=== PATIENT | female | born 1990 | race Caucasian/White ===

== ENCOUNTER 2020-02-06 21:21 | Emergency (ER) | payer OTHER ==
[2020-02-06 22:20] LABS: Absolute Lymphocytes (CBC) 3.3 K/uL (0.7-4.9); Hematocrit 38.6 % (36.0-45.0); Lymphocytes % 29.8 % (15.3-44.8); RBC Red Blood Cell Count 4.58 M/uL (3.86-4.86)
[2020-02-06 23:10] LABS: Urine Blood 3+ (NEG); Urine Glucose NEGATIVE (NEG); Urine Protein 1+ (NEG); Urine pH 8.5 (5.0-7.0)
[2020-02-06 23:44] LABS: Potassium 3.2 mmol/L (3.5-5.1)
--- NOTE | 2020-02-06 23:50 | EDPHYS ---
Physician Documentation [facility] Name: Allison Boswell Age: 29 yrs Sex: Female : 1990 Arrival Date: 02/06/2020 Time: 21:23 Bed 19 Private MD: ED Physician Mitchell Nelson HPI: 02/05 22:04 This 29 yrs old Female presents to ER via Ambulatory with complaints of jmm Vaginal Bleeding, + Preg <12wks. 22:04 The patient presents to the emergency department with vaginal bleeding, that is light. jmm The estimated gestational age is 5 weeks. course: care: private OB physician. This is a 29 year old female approx 5 to 7 weeks that presents to the ED with complaints of vaginal bleeding beginning approx 3 days ago with spotting and has now increased today. Advised by ob to go to ED for further evaluation. . 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 - Social history:: Smoking status: Patient denies any tobacco usage or history of. ROS: 22:04 Constitutional: Negative for fever, chills, and weight loss, Cardiovascular: Negative jmm for chest pain, palpitations, and edema, Respiratory: Negative for shortness of breath, cough, wheezing, and pleuritic chest pain, Abdomen/GI: Negative for abdominal pain, nausea, vomiting, diarrhea, and constipation. 22:04 : Positive for vaginal bleeding. 22:04 All other systems are negative. Exam: 22:04 Constitutional: This is a well developed, well nourished patient who is awake, alert, jmm and in no acute distress. Head/Face: atraumatic. Eyes: EOMI, no conjunctival erythema appreciated ENT: Moist Mucus Membranes Neck: Trachea midline, Supple Chest/axilla: Normal chest wall appearance and motion. Cardiovascular: Regular rate and rhythm. No edema appreciated Respiratory: Normal respirations, no respiratory distress appreciated Abdomen/GI: Non distended, soft Back: Normal ROM Skin: General appearance color normal MS/ Extremity: Moves all extremities, no obvious deformities appreciated, no edema noted to the lower extremities Neuro: Awake and alert, normal gait Psych: Behavior is normal, Mood is normal, Patient is cooperative and pleasant Vital Signs: 21:49 BP 131 / 82; Pulse 58; Resp 18; Temp 98.2; Pulse Ox 100% on R/A; Weight 92.99 kg; dm5 Height 5 ft. 3 in. (160.02 cm); Pain 0/10; 22:50 BP 132 / 70 LA (auto/reg); Pulse 59 MON; Resp 16 S; Temp 97.8; Pulse Ox 100% on R/A; sg 02/06 00:00 BP 130 / 77; Pulse 60; Resp 18; Temp 97.8; Pulse Ox 100% on R/A; sg 02/05 21:49 Body Mass Index 36.31 (92.99 kg, 160.02 cm) dm5 MDM: 02/05 22:02 Patient medically screened. [facility] 23:48 Data reviewed: vital signs, nurses notes. Counseling: I had a detailed discussion with tesha the patient and/or guardian regarding: the historical points, exam findings, and any diagnostic results supporting the discharge/admit diagnosis, lab results, the need for outpatient follow up, to return to the emergency department if symptoms worsen or persist or if there are any questions or concerns that arise at home. ED course: Patient is alert and non toxic in appearance in the ED. IUP. Patient prescribed abx, advised to follow upw with ob for repeat quant hcg. Patient advised to follow up with pcp and otherwise given strict return precautions. Patient understood and agrees with the plan of care. . 02/05 21:54 Order name: Quantitative Hcg; Complete Time: 23:48 [facility] 02/05 21:54 Order name: Abo/rh Typing; Complete Time: 23:51 [facility] 02/05 21:54 Order name: Basic Metabolic Panel; Complete Time: 23:48 [facility] 02/05 21:54 Order name: CBC with Diff; Complete Time: 22:27 [facility] 02/05 22:43 Order name: Urine Dipstick--Ancillary (enter results) tt3 02/05 22:43 Order name: Urine --Ancillary (enter results); Complete Time: 23:16 tt3 02/05 21:54 Order name: IV Saline Lock; Complete Time: 22:01 [facility] 02/05 21:54 Order name: Labs collected and sent; Complete Time: 22:01 [facility] 02/05 21:54 Order name: NPO; Complete Time: 22:01 [facility] 02/05 21:54 Order name: Urine Dipstick-Ancillary (obtain specimen); Complete Time: 22:43 [facility] 02/05 22:45 Order name: Urine Microscopic Only 02/05 22:45 Order name: Urine Culture sg Administered Medications: No medications were administered Disposition: 02/06 21:48 Co-signature as Attending Physician, Mitchell Nelson MD I agree with the assessment and tw4 plan of care. Disposition: 02/06/20 23:50 Discharged to Home. Impression: Threatened , Urinary tract infection, site not specified. - Condition is Fair. - Discharge Instructions: Threatened Miscarriage, Vaginal Bleeding During , First Trimester, and Urinary Tract Infection. - Prescriptions for Macrobid 100 mg Oral Capsule - take 1 capsule by ORAL route every 12 hours for 7 days; 14 capsule. - Medication Reconciliation Form, Thank You Letter, Antibiotic Education, Prescription Opioid Use form. - Follow up: Private Physician; When: 2 - 3 days; Reason: Recheck today's complaints, Continuance of care, Repeat Beta-HCG (48 Hours), Re-evaluation by your physician. Signatures: Dispatcher [employer] Verónica Bailey RN RN dm5 Clement Aggarwal RN RN sg Coy Card PA PA jmm Wadley, Terrence, MD MD tw4 Corrections: (The following items were deleted from the chart) 00:06 02/05 23:50 02/06/2020 23:50 Discharged to Home. Impression: Threatened ; dm5 Urinary tract infection, site not specified. Condition is Fair. Forms are Medication Reconciliation Form, Thank You Letter, Antibiotic Education, Prescription Opioid Use. Follow up: Private Physician; When: 2 - 3 days; Reason: Recheck today's complaints, Continuance of care, Repeat Beta-HCG (48 Hours), Re-evaluation by your physician. tesha
--- NOTE | 2020-02-06 23:50 | ER ---
Nurse's Notes [facility] Name: Allison Boswell Age: 29 yrs Sex: Female : 1990 Arrival Date: 02/06/2020 Time: 21:23 Bed 19 Private MD: Diagnosis: Threatened ;Urinary tract infection, site not specified Presentation: 02/05 21:49 Chief complaint: Patient states: spotting after sex 3 days ago that continued lightly dm5 bleeding and it got heavier today. Coronavirus screen: Client denies travel out of the [place] in the last 14 days. At this time, the client does not indicate any symptoms associated with coronavirus-19. Ebola Screen: Patient negative for fever greater than or equal to 101.5 degrees Fahrenheit, and additional compatible Ebola Virus Disease symptoms Patient denies exposure to infectious person. Patient denies travel to an Ebola-affected area in the 21 days before illness onset. No symptoms or risks identified at this time. Initial Sepsis Screen: Does the patient meet any 2 criteria? No. Patient's initial sepsis screen is negative. Does the patient have a suspected source of infection? No. Patient's initial sepsis screen is negative. Risk Assessment: Do you want to hurt yourself or someone else? Patient reports no desire to harm self or others. Onset of symptoms was February 06, 2020. 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 - Social history:: Smoking status: Patient denies any tobacco usage or history of. Screenin:00 Abuse screen: Denies threats or abuse. Denies injuries from another. Nutritional sg screening: No deficits noted. Tuberculosis screening: No symptoms or risk factors identified. Never had TB. Fall Risk None identified. Assessment: 22:00 Obstetrical Assessment: General assessment: awake and alert. General: Appears in no sg apparent distress. well groomed, well developed, well nourished, Behavior is calm, cooperative, appropriate for age. Pain: Denies pain. Neuro: Level of Consciousness is awake, alert, obeys commands, Oriented to person, place, situation, Facial symmetry appears normal. Cardiovascular: Patient's skin is warm and dry. Chest pain is denied. Respiratory: Airway is patent Respiratory effort is even, unlabored, Respiratory pattern is regular, symmetrical. GI: No signs and/or symptoms were reported involving the gastrointestinal system. : Urine is cloudy, Reports vaginal bleeding that is bright red, heavy flow. EENT: No signs and/or symptoms were reported regarding the EENT system. Derm: Skin is pink, warm \\T\\ dry. Musculoskeletal: Circulation, motion, and sensation intact. Range of motion: intact in all extremities. 22:16 Reassessment: Patient appears in no apparent distress at this time. Patient and/or sg family updated on plan of care and expected duration. Pain level reassessed. Patient is alert, oriented x 3, equal unlabored respirations, skin warm/dry/pink. 23:09 Reassessment: Patient appears in no apparent distress at this time. pt spouse at nurses sg station, states" We have been here for almost two hours, any word on where this ultrasound person is." updated unsure of where the US tech is, estimated ETA 30 more mins, pt spouse rolled his eyes and walked back to exam room. 23:11 Reassessment: pharmacy picking tech at bedside at this time. sg Vital Signs: 21:49 BP 131 / 82; Pulse 58; Resp 18; Temp 98.2; Pulse Ox 100% on R/A; Weight 92.99 kg; dm5 Height 5 ft. 3 in. (160.02 cm); Pain 0/10; 22:50 BP 132 / 70 LA (auto/reg); Pulse 59 MON; Resp 16 S; Temp 97.8; Pulse Ox 100% on R/A; sg 02/06 00:00 BP 130 / 77; Pulse 60; Resp 18; Temp 97.8; Pulse Ox 100% on R/A; sg 02/05 21:49 Body Mass Index 36.31 (92.99 kg, 160.02 cm) dm5 ED Course: 02/05 00:30 IV discontinued, intact, bleeding controlled, No redness/swelling at site. Pressure sg dressing applied. 21:23 Patient arrived in ED. am2 21:51 Triage completed. dm5 21:51 Arm band placed on right wrist. [facility] 21:54 Coy Card PA is PHCP. [facility] 21:54 Mitchell Nelson MD is Attending Physician. [facility] 22:00 Patient has correct armband on for positive identification. Bed in low position. Call sg light in reach. Pulse ox on. NIBP on. Warm blanket given. Head of bed elevated. 22:00 No provider procedures requiring assistance completed. sg 22:16 Clement Aggarwal, RN is Primary Nurse. 22:16 Initial lab(s) drawn, by ak, sent to lab. Inserted saline lock: 22 gauge in right sg antecubital area, using aseptic technique. Blood collected. 02/06 00:30 No provider procedures requiring assistance completed. sg Administered Medications: No medications were administered Outcome: 02/05 23:50 Discharge ordered by . [facility] 02/06 00:00 Discharged to home ambulatory, with family. sg Condition: good Discharge instructions given to patient, family, Instructed on discharge instructions, follow up and referral plans. safety practices, Demonstrated understanding of instructions, follow-up care. 00:06 Patient left the ED. 5 Signatures: Verónica Escobar, RN RN [facility] Clement Aggarwal, RN THADDEUS Coy Card PA PA jmm Moreno, Amanda am2
[2020-02-07 00:02] LABS: Urine Bacteria LOADED /HPF (<20); Urine Mucus 1+ /HPF (NONE SEEN); Urine RBC >50 /HPF (NONE SEEN)
--- NOTE | 2020-02-10 09:06 | RAD REPORT ---
EXAM DESCRIPTION: US - TRANSVAG OB - 02/07/2020 6:48 am CLINICAL HISTORY: 29 years Female, VAGINAL BLEEDING COMPARISON: None. TECHNIQUE: Complete first trimester iterative ultrasound obtained with transvaginal imaging. FINDINGS: Uterus: The uterus measures 7.7 x 3.8 x 4.4 cm. No myometrial abnormalities. Gestational sac: The gestational sac diameter of 1.3 cm. pole: pole identified with crown-rump length of 0.57 cm heart motion: Not identified. Yolk sac: Not identified. Placenta: Not well evaluated due to early gestational age Right ovary: Not identified. Left ovary: The left ovary measures 1.9 x 0.9 x 0.9 cm. Adnexa: No large adnexal masses Free fluid: No free pelvic fluid. Duplex imaging: Color and spectral Doppler imaging demonstrates blood flow in the left ovary. IMPRESSION: 1. Single intrauterine identified with a crown-rump length of 0.57 cm compatib le with an estimated gestational age of 6 weeks, 3 days. No cardiac activity identified. Findin gs concerning for demise however lack of cardiac activity may be related to relatively early ge stational age. Early normal is not excluded on this first ultrasound. Close continued clini chris, laboratory, and sonographic follow-up recommended. Electronically signed by: Naga Maldonado 02/07/2020 12:53 AM FINANCIAL ACCOUNTING ANALYST Due to temporary technical issues with the PACS/Fluency reporting system, reports are being signed by the in house radiologist without review as a courtesy to ensure prompt reporting. The interpreting r adiologist is fully responsible for the content of the report.
[2020-02-11 11:29] VITALS: BP 131/82; TEMP 98.2; O2SAT 100
== END 2020-02-07 00:06 | disposition home or self-care (01) ==
LOC: ER 21:21
DX: O20.0 Threatened abortion (principal); O23.41 Unspecified infection of urinary tract in pregnancy, first trimester; Z3A.01 Less than 8 weeks gestation of pregnancy; Z88.0 Allergy status to penicillin; Z88.2 Allergy status to sulfonamides
CPT/HCPCS: 36415; 76813; 80048; 81003; 81015; 81025; 84702; 85025; 86900; 86901; 87077; 87086; 87088; 87186; 99284

== ENCOUNTER 2021-04-30 13:55 | Emergency (ER) | payer OTHER ==
--- OUTSIDE RECORDS SUMMARY | 2021-04-30 13:59 | XMS REPORT | Continuity of Care Document ---
:1990 Author Organization [facility] t Address [address] [place] [address] Care Team Providers Name Role Phone Pcp, Does Not Have A Primary Care Physician Nalini Miranda Attending Clinician Unavailable Doctor Unassigned, Name Attending Clinician Unavailable Nalini Pereira MD Attending Clinician Nalini PEREIRA Attending Clinician Unavailable 2, Lab Attending Clinician Unavailable Leonard Hollins MD Attending Clinician Kenan Kimbrough DO Attending Clinician Pob, Lab Main Attending Clinician Unavailable Nalini Miranda Admitting Clinician Unavailable Payers Payer Name Policy Type Policy Number Effective Date Expiration Date S ource Problems Condition Condition Condition Status Onset Resolution Last Treating Co mments Source Name Details Category Date Date Treatment Clinician Date History of History of Disease Active U nivers multiple multiple 5-28 ity of [place] Obesity Obesity Disease Active 2019-02 Univers (BMI (BMI 2-02 ity of 30-39.9) 30-39.9) 00:00: [place] [address] Medical Branch Less than Less than Disease Active 2019-02 Uni vers 8 weeks 8 weeks 2-02 ity of [place] ch Allergies, Adverse Reactions, Alerts Allergy Allergy Status Severity Reaction(s) Onset Inactive Treating Comm ents Source Name Type Date Date Clinician PENICILL DRUG Active High Anaphylaxis 2019-02 Uni vers IN INGREDI 02 ity of 00:00: [place] 00 Medical Branch SULFA Drug Active Hives 2019-02 Univers (SULFONA Class 02 ity of MIDE 00:00: [place] ANTIBIOT 00 Medical ICS) Branch Penicill Propensi Active Anaphylaxis 2019-02 U nivers in ty to 03-30 ity of adverse 00:00: [place] reaction 00 Medical s Branch Sulfa Propensi Active Itching 2019-02 Univers (Sulfona ty to 03-30 ity of mide adverse 00:00: [place] Antibiot reaction 00 Medica l ics) s Branch NO KNOWN Drug Active Univers ALLERGIE Class ity of S [place] [facility] Social History Social Habit Start Date Stop Date Quantity Comments Source ASSERTION 2019-12-29 University of 00:00:00 [place] [facility] History [facility] University o f Alcohol Comment [place] [facility] Exposure to Not sure [facility] SARS-CoV-2 [place] [facility] (event) Branch Alcohol intake 2020-08-31 2020-08-31 Lifetime University of 00:00:00 00:00:00 non-drinker [place] [facility] (finding) Branch Tobacco use and 2020-01-28 2020-01-28 Never used Universit y of exposure 00:00:00 00:00:00 [place] [facility] History SDOH 2020-01-28 2020-01-28 1 University o f Alcohol Frequency 00:00:00 00:00:00 [place] [facility] History SDVT 2020-01-28 2020-01-28 99 University o f Alcohol Std 00:00:00 00:00:00 [place] [facility] Drinks Branch History [facility] 2020-01-28 2020-01-28 1 University o f Alcohol Binge 00:00:00 00:00:00 [place] [facility] Sex [birth year] At [birth year] Universit y of 00:00:00 00:00:00 [place] [facility] Smoking Status Start Date Stop Date Source Never smoker [facility] Medical Branch Medications Ordered Filled Start Stop Current Ordering Indication Dosage Frequency Signature Comments Components Source Medication Medication Date Date Medication? Clinician (SIG) Name Name Yes Take by OncoHoldingse rs vit 5-28 mouth. ity of calc,iron,f 20:07: [place] olic 12 Medical ( Branch VITAMIN ORAL) Yes Take by Unive rs vit 5-28 mouth. ity of calc,iron,f 20:07: [address] ( Branch VITAMIN ORAL) Yes Take by Unive rs vit 5-28 mouth. ity of calc,iron,f 20:07: [address] ( Branch VITAMIN ORAL) Yes Take by Unive rs vit 5-28 mouth. ity of calc,iron,f 20:07: [address] ( Branch VITAMIN ORAL) Yes Take by Unive rs vit 5-28 mouth. ity of calc,iron,f 20:07: [address] ( Branch VITAMIN ORAL) Yes Take by Unive rs vit 5-28 mouth. ity of calc,iron,f 20:07: [address] ( Branch VITAMIN ORAL) Yes Take by Unive rs vit 5-28 mouth. ity of calc,iron,f 20:07: [address] ( Branch VITAMIN ORAL) Yes Take by Unive rs vit 5-28 mouth. ity of calc,iron,f 20:07: [address] ( Branch VITAMIN ORAL) Yes Take by Unive rs vit 5-28 mouth. ity of calc,iron,f 20:07: [address] ( Branch VITAMIN ORAL) Yes Take by Unive rs vit 5-28 mouth. ity of calc,iron,f 20:07: [address] ( Branch VITAMIN ORAL) Yes Take by Unive rs vit 5-28 mouth. ity of calc,iron,f 15:07: [address] ( Branch VITAMIN ORAL) Yes Take by Unive rs vit 5-28 mouth. ity of calc,iron,f 15:07: [place] [address] Medical ( Branch VITAMIN ORAL) Yes Take by Unive rs vit 5-28 mouth. ity of calc,iron,f 15:07: [address] ( Branch VITAMIN ORAL) 2020 Yes Take by Unive rs vit 2-15 mouth. ity of calc,iron,f 22:05: [place] olic 15 Medical ( Branch VITAMIN ORAL) 2020- Yes Take by Unive rs vit 2-15 mouth. ity of calc,iron,f 22:05: [place] [address] Medical ( Branch VITAMIN ORAL) 2020- Yes Take by Unive rs vit 2-15 mouth. ity of calc,iron,f 22:05: [place] [address] Medical ( Branch VITAMIN ORAL) 2020- Yes Take by Unive rs vit 2-15 mouth. ity of calc,iron,f 22:05: [place] [address] Medical ( Branch VITAMIN ORAL) 2020- Yes Take by Unive rs vit 2-15 mouth. ity of calc,iron,f 22:05: [place] [address] Medical ( Branch VITAMIN ORAL) 2020- Yes Take by Unive rs vit 2-15 mouth. ity of calc,iron,f 22:05: [place] [address] Medical ( Branch VITAMIN ORAL) 2020- Yes Take by Unive rs vit 2-15 mouth. ity of calc,iron,f 22:05: [place] [address] Medical ( Branch VITAMIN ORAL) 2020- Yes Take by Unive rs vit 2-15 mouth. ity of calc,iron,f 22:05: [place] [address] Medical ( Branch VITAMIN ORAL) 2020- Yes Take by Unive rs vit 2-15 mouth. ity of calc,iron,f 22:05: [place] [address] Medical ( Branch VITAMIN ORAL) 2020- Yes Take by Unive rs vit 2-15 mouth. ity of calc,iron,f 22:05: [place] [address] Medical ( Branch VITAMIN ORAL) 2020- Yes Take by Unive rs vit 2-15 mouth. ity of calc,iron,f 22:05: [place] [address] Medical ( Branch VITAMIN ORAL) Nitrofurant 2020- Yes Univer s oin&Nit. 2-14 ity of Macrocryst 00:00: [place] 100 mg 00 Medical capsule Branch Nitrofurant 2020- Yes Univer s oin&Nit. 2-14 ity of Macrocryst 00:00: [place] 100 mg 00 Medical capsule Branch Nitrofurant 2019- Yes Univer s oin&Nit. 2-14 ity of Macrocryst 00:00: [place] 100 mg 00 Medical capsule Branch Nitrofurant 2020 Yes Univer s oin&Nit. 2-14 ity of Macrocryst 00:00: [place] 100 mg 00 Medical capsule Branch Nitrofurant 2020- Yes Univer s oin&Nit. 2-14 ity of Macrocryst 00:00: [place] 100 mg 00 Medical capsule Branch Nitrofurant 2019-02 Yes Univer s oin&Nit. 2-14 ity of Macrocryst 00:00: [place] 100 mg 00 Medical capsule Branch Nitrofurant 2019-02 Yes Univer s oin&Nit. 2-14 ity of Macrocryst 00:00: [place] 100 mg 00 Medical capsule Branch Nitrofurant 2019- 2020- No Unive rs oin&Nit. 2-14 12-30 ity of Macrocryst 00:00: 00:00 [place] 100 mg 00 :00 Medical capsule Branch Nitrofurant 2019- 2020- No Unive rs oin&Nit. 2-14 12-30 ity of Macrocryst 00:00: 00:00 [place] 100 mg 00 :00 Medical capsule Branch Nitrofurant 2019-02 2020- No Unive rs oin&Nit. 2-14 12-30 ity of Macrocryst 00:00: 00:00 [place] 100 mg 00 :00 Medical capsule Branch 2020 Yes Take by Unive rs vit 2-02 mouth. ity of calc,iron,f 16:13: [place] [address] Medical ( Branch VITAMIN ORAL) 2020 Yes Take by Unive rs vit 2-02 mouth. ity of calc,iron,f 16:13: [place] [address] Medical ( Branch VITAMIN ORAL) 2020- Yes Take by Unive rs vit 2-02 mouth. ity of calc,iron,f 16:13: [place] [address] Medical ( Branch VITAMIN ORAL) 2020- Yes Take by Unive rs vit 2-02 mouth. ity of calc,iron,f 16:13: [place] [address] Medical ( Branch VITAMIN ORAL) 2020- Yes Take by Unive rs vit 2-02 mouth. ity of calc,iron,f 16:13: [place] [address] Medical ( Branch VITAMIN ORAL) 2020- Yes Take by Unive rs vit 2-02 mouth. ity of calc,iron,f 16:13: [place] [address] Medical ( Branch VITAMIN ORAL) 2020- Yes Take by Unive rs vit 2-02 mouth. ity of calc,iron,f 16:13: [place] [address] Medical ( Branch VITAMIN ORAL) 2020- Yes Take by Unive rs vit 2-02 mouth. ity of calc,iron,f 16:13: [place] [address] Medical ( Branch VITAMIN ORAL) Immunizations Ordered Filled Immunization Date Status Comments [facility] Immunization Name Name Influenza Virus 2020-01-28 Completed Universit y of Vaccine Quad .5 mL 00:00:00 [place] [facility] IM 6+ MO Branch Influenza Virus 2020-01-28 Completed Universit y of Vaccine Quad .5 mL 00:00:00 [place] [facility] IM 6+ MO Branch Influenza Virus 2020-01-28 Completed Universit y of Vaccine [place] .5 mL 00:00:00 [place] [facility] IM 6+ MO Branch Influenza Virus 2020-01-28 Completed Universit y of Vaccine [place] .5 mL 00:00:00 [place] [facility] IM 6+ MO Branch Influenza Virus 2020-01-28 Completed Universit y of Vaccine [place] .5 mL 00:00:00 [place] [facility] IM 6+ MO Branch Influenza Virus 2020-01-28 Completed Universit y of Vaccine [place] .5 mL 00:00:00 [place] [facility] IM 6+ MO Branch Influenza Virus 2020-01-28 Completed Universit y of Vaccine [place] .5 mL 00:00:00 [place] [facility] IM 6+ MO Branch Influenza Virus 2020-01-28 Completed Universit y of Vaccine [place] .5 mL 00:00:00 [place] [facility] IM 6+ MO Branch Influenza Virus 2020-01-28 Completed Universit y of Vaccine [place] .5 mL 00:00:00 [place] [facility] IM 6+ MO Branch Influenza Virus 2020-01-28 Completed Universit y of Vaccine [place] .5 mL 00:00:00 [place] [facility] IM 6+ MO Branch Influenza Virus 2020-01-28 Completed Universit y of Vaccine [place] .5 mL 00:00:00 [place] Medical IM 6+ MO Branch Influenza Virus 2020-01-28 Completed Universit y of Vaccine [place] .5 mL 00:00:00 [place] [facility] IM 6+ MO Branch Influenza Virus 2020-01-28 Completed Universit y of Vaccine [place] .5 mL 00:00:00 [place] [facility] IM 6+ MO Branch Influenza Virus 2020-01-28 Completed Universit y of Vaccine [place] .5 mL 00:00:00 [place] [facility] IM 6+ MO Branch Influenza Virus 2020-01-28 Completed Universit y of Vaccine [place] .5 mL 00:00:00 [place] [facility] IM 6+ MO Branch Influenza Virus 2020-01-28 Completed Universit y of Vaccine [place] .5 mL 00:00:00 [place] [facility] IM 6+ MO Branch Influenza Virus 2020-01-28 Completed Universit y of Vaccine [place] .5 mL 00:00:00 [place] [facility] IM 6+ MO Branch Influenza Virus 2020-01-28 Completed Universit y of Vaccine Quad .5 mL 00:00:00 [place] [facility] IM 6+ MO Branch Influenza Virus 2020-01-28 Completed Universit y of Vaccine [place] .5 mL 00:00:00 [place] [facility] IM 6+ MO Branch Influenza Virus 2020-01-28 Completed Universit y of Vaccine Quad .5 mL 00:00:00 [place] [facility] IM 6+ MO Branch Influenza Virus 2020-01-28 Completed Universit y of Vaccine [place] .5 mL 00:00:00 [place] [facility] IM 6+ MO Branch Influenza Virus 2020-01-28 Completed Universit y of Vaccine [place] .5 mL 00:00:00 [place] [facility] IM 6+ MO Branch Influenza Virus 2020-01-28 Completed Universit y of Vaccine [place] .5 mL 00:00:00 [place] [facility] IM 6+ MO Branch Influenza Virus 2020-01-28 Completed Universit y of Vaccine [place] .5 mL 00:00:00 [place] [facility] IM 6+ MO Branch Influenza Virus 2020-01-28 Completed Universit y of Vaccine [place] .5 mL 00:00:00 [place] [facility] IM 6+ MO Branch Influenza Virus 2020-01-28 Completed Universit y of Vaccine [place] .5 mL 00:00:00 [place] [facility] IM 6+ MO Branch Influenza Virus 2020-01-28 Completed Universit y of Vaccine [place] .5 mL 00:00:00 [place] [facility] IM 6+ MO Branch Influenza Virus 2020-01-28 Completed Universit y of Vaccine [place] .5 mL 00:00:00 [place] [facility] IM 6+ MO Branch Influenza Virus 2020-01-28 Completed Universit y of Vaccine [place] .5 mL 00:00:00 [place] [facility] IM 6+ MO Branch Influenza Virus 2020-01-28 Completed Universit y of Vaccine [place] .5 mL 00:00:00 [place] [facility] IM 6+ MO Branch Influenza Virus 2020-01-28 Completed Universit y of Vaccine [place] .5 mL 00:00:00 [place] [facility] IM 6+ MO Branch Influenza Virus 2020-01-28 Completed Universit y of Vaccine Quad .5 mL 00:00:00 [facility] IM 6+ MO Branch Vital Signs Vital Name Observation Time Observation Value Comments Source Systolic blood 2020-07-23 20:05:00 122 mm[Hg] Univer sity of pressure [facility] Diastolic blood 2020-07-23 20:05:00 81 mm[Hg] Unive rsity of pressure [facility] Heart rate 2020-07-23 20:05:00 75 /min [facility] [place] [facility] [place] Body temperature 2020-07-23 20:05:00 36.78 Gabriela Univ ersity of [place] [facility] Respiratory rate 2020-07-23 20:05:00 18 /min Univ ersity of [place] [facility] Body height 2020-07-23 20:05:00 160 cm [facility] [place] [facility] [place] Body weight 2020-07-23 20:05:00 95.255 kg [facility] [place] [facility] [place] BMI 2020-07-23 20:05:00 37.20 kg/m2 [facility] [place] [facility] Systolic blood 2020-02-25 18:04:00 106 mm[Hg] Univer sity of pressure [place] [facility] Diastolic blood 2020-02-25 18:04:00 59 mm[Hg] Unive rsity of pressure [place] [facility] Heart rate 2020-02-25 18:04:00 58 /min [facility] [place] [facility] Body temperature 2020-02-25 18:04:00 36.83 Gabriela Univ [facility]ity [facility] [place] [facility] [place] Respiratory rate 2020-02-25 18:04:00 18 /min Univ ersity of [place] [facility] Body height 2020-02-25 18:04:00 160 cm [facility] [place] [facility] Body weight 2020-02-25 18:04:00 93.895 kg [facility] [place] [facility] BMI 2020-02-25 18:04:00 36.67 kg/m2 [facility] [place] [facility] Systolic blood 2020-02-10 22:04:00 126 mm[Hg] Univer sity of pressure [place] [facility] Diastolic blood 2020-02-10 22:04:00 84 mm[Hg] Unive rsity of pressure [place] [facility] Heart rate 2020-02-10 22:04:00 83 /min [facility] [place] [facility] Body temperature 2020-02-10 22:04:00 36.78 Gabriela Univ [facility] [place] [facility] Respiratory rate 2020-02-10 22:04:00 18 /min Univ ersity of [place] [facility] Body height 2020-02-10 22:04:00 160 cm [facility]i [facility] [place] [facility] Body weight 2020-02-10 22:04:00 92.987 kg [facility]i ty [facility] [place] [facility] BMI 2020-02-10 22:04:00 36.31 kg/m2 [facility] [place] [facility] Systolic blood 2020-01-28 16:10:00 116 mm[Hg] Univer sity of pressure [place] [facility] Diastolic blood 2020-01-28 16:10:00 71 mm[Hg] Unive rsity of pressure [place] [facility] Heart rate 2020-01-28 16:10:00 72 /min [facility]i [facility] [place] [facility] Body temperature 2020-01-28 16:10:00 36.78 Gabriela Univ ersity of [facility] Respiratory rate 2020-01-28 16:10:00 18 /min Univ ersity of [facility] Body height 2020-01-28 16:10:00 160 cm [facility] [place] [facility] Body weight 2020-01-28 16:10:00 93.441 kg [facility] [place] [facility] BMI 2020-01-28 16:10:00 36.49 kg/m2 [facility] [place] [facility] Procedures Procedure Date / Time Performing Clinician Source Performed AUTHORIZATION TO RELEASE 2021-01-07 06:01:00 Doctor Unassigned, No [facility] TO [facility] Medical Branch US PELVIS COMPLETE WITH 2020-09-03 19:50:[address] [facility] TRANSVAGINAL [facility] ULTR[facility] 2020-07-23 05:01:00 Doctor Unassigned, No [facility] Branch POCT TEST 2020-07-23 00:00:00 AdAltagracia davies [facility] EXTERNAL PROVIDER 2020-02-05 06:01:00 Doctor Unassigned, No [facility] Medical Branch FLU VACC ([id number]), 6+ 2020-01-28 16:33:54 AdumAltagracia [facility] MONTHS, IM, QUAD Medical Branch POCT TEST 2020-01-28 00:00:00 AdAltagracia davies [facility] POCT URINALYSIS W/O 2020-01-28 00:00:[address] [facility] SPECIFIC GRAVITY [facility] Er Encounters Start End Encounter Admission Attending Care Care Encounter Source Date/Time Date/Time Type Type Clinicians Facility Department ID 2021-05-05 Inpatient KRISHNA Miranda [facility] [id number] [facility] 09:00:00 Corin [id number] [facility] [place] 2021-04-28 Outpatient Ruben [facility] [id number] [facility] 13:49:24 Corin 23 [facility] [place] 2021-05-02 2021-05-02 Inpatient KRISHNA Miranda [facility] [id number] [facility] 13:00:00 13:00:00 Corin [id number] [facility] [place] 2021-04-28 2021-04-28 Outpatient CHRIS Miranda [facility] [id number] [facility] 07:50:00 07:50:00 Corin [id number] [facility] [place] 2021-01-07 2021-01-07 Orders Doctor JULIO [id number] Univers 00:00:00 00:00:00 Only Unassigned, IBRAHIMA [id number] ity of [place] [facility] [id number] Jey as [phone] [address] 2021-01-06 2021-01-06 Telephone Adum, [facility] [id number] [facility] 00:00:00 00:00:00 Altagracia MONTEIRO [id number] ity of [id number] [phone] Oh dical NAL 134 [facility] 2021-01-05 2021-01-05 Telephone Ad, [facility] [id number] [facility] 00:00:00 00:00:00 Altagracia MONTEIRO [id number] ity [facility] [id number] [phone] Oh dical NAL 134 [facility] 2020-09-03 2020-09-03 [facility] [id number] Univers 14:00:00 23:59:00 Encounter Altagracia Monteiro [id number] ity [id number] [phone] [address] [place] 2020-09-03 2020-09-03 Outpatient R AD, [facility] [id number] Univers 00:00:00 00:00:00 ALTAGRACIA ity [facility] 2020-09-03 2020-09-03 Outpatient R [facility] [id number] Univers 00:00:00 00:00:00 [facility]IA [id number] [facility] 2020-08-30 2020-08-30 Online Marketing Coordinator 2, Adc Lab [facility] [id number] Univers 08:33:39 08:48:39 Visit Lana Hollins [id number] ity of [place] [id number] [facility] [phone] Oh dical [facility] 353 [facility] 2020-08-30 2020-08-30 Outpatient R [facility] [id number] Univers 08:15:00 08:15:00 [id number] [facility] 2020-08-30 2020-08-30 Outpatient R [facility] [id number] Univers 08:15:00 08:15:00 ity [facility] 2020-08-27 2020-08-27 Case [facility] [id number] Univers 00:00:00 00:00:00 Management Altagracia Monteiro [id number] it[id number] [phone] Me dical nal 134 [facility] 2020-08-23 2020-08-23 Outpatient R [facility] [id number] Univers 09:45:00 09:45:00 [id number] ity [facility] 2020-08-23 2020-08-23 [facility] [id number] Univers 09:45:00 09:45:00 ALTAGRACIA ity of [facility] 2020-08-23 2020-08-23 Online Marketing Coordinator 2, Adc Lab [facility] [id number] Univers 08:30:33 08:45:33 Visit Adum, Altagracia Monteiro [id number] it[id number] [phone] Oh dical nal 353 [facility] 2020-08-06 2020-08-06 Outpatient R [facility] [id number] - Univers 08:00:00 08:00:00 [id number] ity of [facility] 2020-08-04 2020-08-04 Outpatient ADUM, [facility] [id number] Univers 14:15:00 14:15:00 ALTAGRACIA [id number] ity of [facility] 2020-07-29 2020-07-29 Online Marketing Coordinator 2, Adc Lab [facility] [id number] Univers 08:18:14 08:33:14 Visit Adum, Altagracia Monte[place] [id number] ity [id number] [phone] Oh dical nal [address] [place] [address] 2020-07-29 2020-07-29 Outpatient R [facility] [id number] - Univers 08:15:00 08:15:00 [id number] ity of [facility] 2020-07-29 2020-07-29 Outpatient R [facility] [id number] Univers 08:15:00 08:15:00 ity of [facility] 2020-07-29 2020-07-29 Case Adum, [facility] [id number] Univers 00:00:00 00:00:00 Management Altagracia Monteiro [id number] ity [id number] [phone] Oh dical nal 134 [facility] 2020-07-27 2020-07-27 Online Marketing Coordinator 2, Adc Lab [facility] 1.2.840.114 [id number] Univers 10:05:18 10:20:18 Visit Adum, Altagracia Monteiro [id number] it[id number] [phone] Oh dical nal 353 [facility] 2020-07-27 2020-07-27 Outpatient R [facility] [id number] Univers 09:30:00 09:30:00 [id number] ity of [facility] 2020-07-27 2020-07-27 Outpatient R [facility] [id number] Univers 09:30:00 09:30:00 ity of [facility] 2020-07-23 2020-07-23 Online Marketing Coordinator 2, Adc Lab [facility] [id number] [id number] Univers 15:52:30 16:07:30 Visit AdumAltagracia [id number] ity [id number] [phone] Oh dical nal 353 [facility] 2020-07-23 2020-07-23 Initial Adum, [facility] [id number] Univers 14:30:47 15:49:09 Altagracia Gayle Marie [id number] ity of [id number] [phone] Oh dical nal 134 [facility] 2020-07-23 2020-07-23 Outpatient R AD, [facility] [id number] Univers 14:30:00 14:30:00 ALTAGRACIA [id number] ity of [facility] 2020-07-23 2020-07-23 Outpatient R ADUM, [facility] [id number] Univers 14:30:00 14:30:00 ALTAGRACIA ity [facility] 2020-07-23 2020-07-23 Orders Doctor JULIO [id number] Univers 00:00:00 00:00:00 Only Unassigned, IBRAHIMA [id number] ity of [place] [facility] [id number] Jey as [phone] [address] 2020 2020 Patient Luis [facility] [id number] Univers 00:00:00 00:00:00 Outreach S[place] ESTHER [id number] i ty of [place] [facility] [id number] [facility] [phone] Oh dical [address] [place] 2020-03-10 2020-03-10 Outpatient R [facility] [id number] Univers 08:00:00 08:00:00 [id number] ity [facility] 2020-03-10 2020-03-10 Outpatient R [facility] [id number] Univers 08:00:00 08:00:00 ity [facility] 2020-02-25 2020-02-25 [facility] [id number] Univers 11:40:00 12:16:16 Visit Altagracia Monteiro [id number] it[id number] [phone] Oh dical nal 134 [facility] 2020-02-25 2020-02-25 Outpatient R AD, [facility] [id number] Univers 11:30:00 11:30:00 ALTAGRACIA [id number] ity [facility] 2020-02-25 2020-02-25 Outpatient R [facility] [id number] Univers 11:30:00 11:30:00 ALTAGRACIA ity [facility] 2020-02-25 2020-02-25 Online Marketing Coordinator 2, Adc Lab [facility] [id number] [id number] Univers 09:19:44 09:34:44 Visit AdAltagracia davies [id number] it[id number] [phone] Oh dical nal 353 [facility] 2020-02-11 2020-02-11 Online Marketing Coordinator Malgorzata, Adc Lab Main [facility] [id number] Univers 08:20:50 08:35:50 Visit AdAltagracia davies [id number] ity [id number] [phone] Oh dical nal 353 [facility] 2020-02-11 2020-02-11 Outpatient R [facility] [facility] [id number] Univers 08:15:00 08:15:00 [id number] ity of [facility] 2020-02-11 2020-02-11 Outpatient R [facility] [id number] Univers 08:15:00 08:15:00 ity of [facility] 2020-02-11 2020-02-11 Case Adum, [facility] [id number] Univers 00:00:00 00:00:00 Management Altagracia Gayle [place] [id number] [place] [phone] Oh dical nal 134 [facility] 2020-02-11 2020-02-11 [facility] [id number] Univers 00:00:00 00:00:00 Altagracia L [place] [id number] [place] [phone] Oh dical [place]al [address] [place] [address] 2020-02-10 2020-02-10 Routine Ad, [facility] 1.2.840.114 [id number] Univers 15:53:06 17:24:24 Altagracia L [place] [id number] [place] [phone] Oh dical nal [address] [place] [address] 2020-02-10 2020-02-10 Outpatient R ADUM, [facility] [id number] Univers 16:00:00 16:00:00 ALTAGRACIA [id number] ity of [facility] 2020-02-10 2020-02-10 Outpatient R AD, [facility] [id number] Univers 16:00:00 16:00:00 ALTAGRACIA ity of [facility] 2020-02-09 2020-02-09 [facility] [id number] Univers 00:00:00 00:00:00 [place]tagracia L [place] [id number] [place] [phone] Oh dical nal 134 [facility] 2020-02-06 2020-02-06 Telephone Adum, [facility] [id number] Univers 00:00:00 00:00:00 Altagracia Monteiro [id number] [place] [phone] Oh dical nal 134 [facility] 2020-02-05 2020-02-05 Orders Doctor JULIO 1.2.840.114 [id number] Univers 00:00:00 00:00:00 Only Unassigned, IBRAHIMA 350.1.13.10 ity of [place] [facility] 4.2.7.2.686 Jey as [phone] [address] 2020-02-04 2020-02-04 Case Adum, [place] 1.2.840.114 [id number] Univers 00:00:00 00:00:00 Management Altagracia Monteiro [id number] [place] [phone] Oh dical nal 134 [facility] 2020-01-29 2020-01-29 Telephone Adum, [facility] [id number] Univers 00:00:00 00:00:00 Altagracia Monteiro [id number] [place] [phone] Oh dical nal 134 [facility] 2020-01-28 2020-01-28 Online Marketing Coordinator 2, [facility] [place] 1.2.840.114 [id number] Univers 11:10:41 11:25:41 Visit Adum, Altagracia Monteiro [id number] [place] [phone] Oh dical nal 353 [facility] 2020-01-28 2020-01-28 Initial Adum, [place] 1.2.840.114 [id number] Univers 09:45:25 11:03:44 Altagraciajeanne Garciaton 350.1.13.10 ity of [place] [phone] Oh dical [address] 2020-01-28 2020-01-28 Outpatient R [facility] [id number] -[id number] Univers 11:00:00 11:00:00 [facility] 2020-01-28 2020-01-28 Outpatient R HANNAH, [facility] [id number] Univers 09:30:00 09:30:00 ALTAGRACIA [facility] 2018-12-12 2018-12-12 Inpatient E MHTW MED [id number] MHTW 20:38:00 17:35:00 2018-12-11 2018-12-11 Emergency E MHTW MHTW 7500 MHTW 22:42:00 22:42:00 Results Test Description Test Time Test Comments Results Result Sour e Comments - US PREG AFTER 1ST TRI 3 00:00:00 [facility] : 1990 Sex: F * Patient Name: VANNA LARIOS Unit No: [id number] Report Has Been Amended EXAMS: CPT CODE: [id number] US PREG AFTER TRI 61279 Addendum - 04/28/2021 SIGNED 04/28/2021 ADDENDUM: [id number] Comments: Case was discussed with Dr. Miranda at 1347 hrs. at 1352 Reported and signed by: Alexy Metcalf MD Transcribed: 04/28/2021 ([id number]) [facility] Report PROCEDURE INFORMATION: Exam: US After First Trimester, Transabdominal Exam date and time: 04/28/2021 8:02 AM Age: 30 years old Clinical indication: Screening exam; Routine US, uterus; Additional info: Anatomy LABS AND CLINICAL REPORTS: Gestational age (Established): 20 weeks, 0 days Estimated due date (Established): 09/15/2021 TECHNIQUE: Imaging protocol: Real-time transabdominal obstetrical ultrasound of the maternal pelvis and a second or third trimester with image documentation. COMPARISON: No relevant prior studies available. FINDINGS: Gestation: Single, viable intrauterine gestation. heart rate: 142 bpm presentation: Variable Placenta: Posterior placenta, grade 1, without previa or retroplacental hemorrhage. Amniotic fluid: Amniotic fluid is normal for gestational age. ANATOMY: midline falx: Unremarkable cerebellum: Unremarkable lateral ventricles: Unremarkable cisterna magna: Unremarkable choroid plexus: Unremarkable upper lip and nose: Unremarkable heart four-chamber view, heart size and position: Four-chamber heart visualized with left apex right ventricular outflow tract: Unremarkable left ventricular outflow tract: Unremarkable [facility] NAME: VANNA LARIOS Radiology Department PHYS: Corin Mejia MD [address] : 1990 AGE: 30 SEX: F [place], [place] [address] LOC: MICHAEL PHONE #: [phone] EXAM DATE: 04/28/2021 STATUS: REG CLI FAX #: [phone] RAD NO: Page 1 Signed Report (CONTINUED) Patient Name: RICVANNA BABIN Unit No: [id number] Report Has Been Amended EXAMS: CPT CODE: [id number] US PREG AFTER 1ST TRI 75413 <Continued> kidneys: Unremarkable left kidney. Approximately 19 x 12 x 17 mm anechoic area is seen inseparable from the right renal lower pole. The remaining left renal upper pole shows no gross focal abnormality. stomach: Unremarkable. Normal situs. urinary bladder: Unremarkable spine: Unremarkable Umbilical cord insertion site into the abdomen: Normal cord insertion Umbilical cord vessel number: 3 vessel cord arms and hands: Unremarkable legs and feet: Unremarkable external genitalia: Unremarkable BIOMETRY: Estimated due date (AUA): 09/14/2021 Gestational age (AUA): 20 weeks, 1 day Estimated weight: 344 +/- 52 g (12 oz +/-2 oz) Estimated weight percentile: N/A% Biparietal diameter (BPD): 4.6 cm (19 weeks, 6 days) Head circumference (HC): 17.23 cm (19 weeks, 6 days) Abdominal circumference (AC): 15.26 cm (20 weeks, 3 days) Humerus length (HL): 3.16 cm (20 weeks, 4 days) Femur length (FL): 3.27 cm (20 weeks, 1 day) FL/AC: 21.43 () FL/BPD: 71.01 () HC/AC: 1.13 (1.07-1.25) MATERNAL: Uterus: Unremarkable. Cervix: The cervix is closed measuring 3.5 cm in length Right ovary/adnexa: The right ovary measures 3.1 x 1.6 x 2.3 cm with normal low resistance blood flow. No focal lesions or adnexal mass. Left ovary/adnexa: The left ovary measures 3.2 x 1.7 x 2.8 cm with normal low resistance blood flow. No focal lesions or adnexal mass. Intraperitoneal space: No intraperitoneal free fluid. IMPRESSION: 1. Normal growth concordant with dates with estimated weight of 344 +/-52 g. 2. Anechoic 19 mm cystic area inseparable from the right renal lower pole as described. Dilated left extrarenal pelvis, lower pole cyst or area of cystic dysplasia included in the differential. Consider MRI correlation for further characterization. Unremarkable left kidney. 3. Otherwise no gross abnormalities detected. [facility] NAME: VANNA LARIOS Radiology Department PHYS: Corin Mejia MD [address] : 1990 AGE: 30 SEX: F [place], [place] [address] LOC: YvonneRAD PHONE #: [phone] EXAM DATE: 04/28/2021 STATUS: REG CLI FAX #: [phone] RAD NO: Page 2 Signed Report (CONTINUED) Patient Name: VANNA LARIOS Unit No: [id number] Report Has Been Amended EXAMS: CPT CODE: [id number] US PREG AFTER 1ST TRI 27638 <Continued> at 1348 Reported and signed by: Alexy Metcalf MD CC: Corin Miranda MD Technologist: Brayan Turcios RDMS Probe: Trnscrbd D/ (1348) GCD.CPS Orig Print D/T: S: 04/28/2021 (1349) [facility] NAME[facility] Rad[facility] Department PHYS: Corin Mejia MD [address] : 1990 AGE: 30 SEX: F [place] [address] LOC: F.RAD PHONE #: [phone] EXAM DATE: 04/28/2021 STATUS: REG CLI FAX #: [phone] RAD NO: Page 3 Signed Report Patient Name: VANNA LARIOS [place] Unit No: [id number] Report Has Been Amended EXAMS: CPT CODE: [id number] US PREG AFTER 1ST TRI 94758 <Continued> [facility] NAME: VANNA LRAIOS [facility] Radiology Department PHYS: Corin Mejia MD [address] : 1990 AGE: 30 SEX: F [place] [address] LOC: F.RAD PHONE #: [phone] EXAM DATE: 04/28/2021 STATUS: REG CLI FAX #: [phone] RAD NO: Page 4 Signed Report US PELVIS The uterus shows no Univ ersity of COMPLETE WITH 9 focal lesions or [facility] TRANSVAGINAL 20:07:27 findings to suggest Bra nch retained productsof conception. Possible arcuate uterus. Unremarkable ovaries. Preliminary Report Dictated by Resident: Gilberto Parker MD., have reviewed this study and agree with theabove report.EXAM: US PELVIS COMPLETE WITH TRANSVAGINAL HISTORY: 30 years -old Female with Early recent spontaneous miscarriage,patient has continued to bleed for over 6 weeks now. R/o RPOC . TECHNIQUE: Transabdominal and transvaginal ultrasound imaging of the pelviswas performed including color Doppler evaluation. Inclusion Special Educator imageswere obtained for the record. COMPARISON: None FINDINGS: Uterus: The uterus measures 8.3 x 3.6 x 4.7 cm. The myometrium is homogenous. Nofocal lesion is detected. The endometrium is normal in appearance.Endometri al thickness measures 8 mm. The cervix is unremarkable. Possiblearcuate morphology. Right Adnexa:Ovary size: 3.6 x 1.6 x 2.1 with volume of 6.2 mL.Ovary appearance: Few small follicles.Other: No mass. Left Adnexa:Ovary size: 3.2 x 1.4 x 1.4 with volume of 3.4 mL.Ovary appearance: Few small follicles.Other: No mass. Cul-de-sac: No free fluid. [facility], Radiant Results Inft User - 09/03/2020 3:08 PM CDT EXAM: US PELVIS COMPLETE WITH TRANSVAGINALHISTORY: 30 years -old Female with Early recent spontaneous miscarriage,patient has continued to bleed for over 6 weeks now. R/o RPOC . TECHNIQUE: Transabdominal and transvaginal ultrasound imaging of the pelviswas performed including color Doppler evaluation. Inclusion Special Educator imageswere obtained for the record.COMPARISON: NoneFINDINGS:Uterus: The uterus measures 8.3 x 3.6 x 4.7 cm. The myometrium is homogenous. Nofocal lesion is detected. The endometrium is normal in appearance.Endometri al thickness measures 8 mm. The cervix is unremarkable. Possiblearcuate morphology.Right Adnexa:Ovary size: 3.6 x 1.6 x 2.1 with volume of 6.2 mL.Ovary appearance: Few small follicles.Other: No mass.Left Adnexa:Ovary size: 3.2 x 1.4 x 1.4 with volume of 3.4 mL.Ovary appearance: Few small follicles.Other: No mass.Cul-de-sac: No free fluid. IMPRESSIONThe uterus shows no focal lesions or findings to suggest retained productsof conception. Possible arcuate uterus. Unremarkable ovaries.Preliminary Report Dictated by Resident: Gilberto Ricketts MD., have reviewed this study and agree with theabove report. POCT TEST 2020-07-23 20:12:00 Test Item Value Reference Range Interpretation Comme nts POCT PREG (test code = 1605) Positive On board controls acceptable with C Line (test code = 3574) Yes POCT PREG LOT # (test code = 3575) POCT PREG TEST DATE (test code = 3576) [facility] URINALYSIS W/O SPECIFIC [id number] 16:20:00 Test Item Value Reference Range Interpretation Comments POCT PH U (test code = 3254) N/A 5-8 POCT U LEUK EST (test code = N/A Negative - Negative 3263) POCT U NIT (test code = 3262) N/A Negative - Negative POCT U PROT (test code = 3259) Negative Negative - Negative POCT U GLU (test code = 3256) Negative Negative - Negative POCT U KETONE (test code = 3258) N/A Negative - Negative POCT U BLD (test code = 3257) N/A Negative - Negative [facility] [id number] 16:20:00 Test Item Value Reference Range Interpretation Comments POCT PREG (test code = 1605) Positive On board controls acceptable with C Yes Line (test code = 3574) POCT PREG LOT # (test code = 3575) POCT PREG TEST DATE (test code = 3576) [facility] URINALYSIS W/O SPECIFIC [id number] 16:20:00 Test Item Value Reference Range Interpretation Comments POCT PH U (test code = 3254) N/A 5-8 POCT U LEUK EST (test code = N/A Negative - Negative 3263) POCT U NIT (test code = 3262) N/A Negative - Negative POCT U PROT (test code = 3259) Negative Negative - Negative POCT U GLU (test code = 3256) Negative Negative - Negative POCT U KETONE (test code = 3258) N/A Negative - Negative POCT U BLD (test code = 3257) N/A Negative - Negative [facility] [id number] 16:20:00 Test Item Value Reference Range Interpretation Comments POCT PREG (test code = 1605) Positive On board controls acceptable with C Yes Line (test code = 3574) POCT PREG LOT # (test code = 3575) POCT PREG TEST DATE (test code = 3576) [facility]
[2021-04-30 16:13] LABS: SARS-COV-2 RT PCR POSITIVE (NEGATIVE)
--- NOTE | 2021-04-30 16:24 | ER ---
Nurse's Notes [facility] Name: Allison Boswell Age: 30 yrs Sex: Female : 1990 Arrival Date: 04/30/2021 Time: 13:56 Bed 9 Private MD: Diagnosis: Coronavirus infection, unspecified Presentation: 04/30 14:14 Chief complaint: Patient states: "20 weeks . woke up feeling tired and has had jd3 body aches slowly creeping up all day. sweats, fever, and throat pain that makes it hard to swallow.". Coronavirus screen: fatigue, fever, headache, muscle pain, Client presents with at least one sign or symptom that may indicate coronavirus-19. Standard/surgical mask placed on the client. Provider contacted for isolation considerations. Ebola Screen: No symptoms or risks identified at this time. Initial Sepsis Screen: Does the patient meet any 2 criteria? No. Patient's initial sepsis screen is negative. Does the patient have a suspected source of infection? No. Patient's initial sepsis screen is negative. Risk Assessment: Do you want to hurt yourself or someone else? Patient reports no desire to harm self or others. Onset of symptoms was April 30, 2021. 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 Flu vaccine is up to date. - Social history:: Smoking status: Patient denies any tobacco usage or history of. Screenin:35 Abuse screen: Denies threats or abuse. Nutritional screening: No deficits noted. ke1 Tuberculosis screening: No symptoms or risk factors identified. Fall Risk No fall in past 12 months (0 pts). No secondary diagnosis (0 pts). No IV (0 pts). Ambulatory Aid- None/Bed Rest/Nurse Assist (0 pts). Gait- Normal/Bed Rest/Wheelchair (0 pts) Mental Status- Oriented to own ability (0 pts). Assessment: 14:30 General: Appears uncomfortable, Behavior is anxious. Neuro: Level of Consciousness is ke1 awake, alert, Oriented to person, place, time, situation. Cardiovascular: Capillary refill < 3 seconds Patient's skin is warm and dry. Respiratory: Airway is patent Breath sounds are clear bilaterally. GI: Abdomen is 20 weeks. 14:33 Pain: Complains of pain in Upper back and neck area Pain currently is 6 out of 10 on a ke1 pain scale. Quality of pain is described as aching, Pain began gradually, 4 hours ago. Is continuous, Alleviated by rest, Aggravated by exercise, increased activity, Noted to be quiet/stoic, Goal of pain control is to be pain free. 15:30 Reassessment: Patient states symptoms have improved. ke1 16:54 Reassessment: No changes from previously documented assessment. ke1 Vital Signs: 14:16 BP 122 / 76; Pulse 110; Resp 18 S; Temp 98.5(TE); Pulse Ox 98% on R/A; Weight 96.62 kg jd3 (R); Height 5 ft. 3 in. (160.02 cm) (R); Pain 8/10; 16:53 BP 122 / 62; Pulse 98; Resp 18; Temp 98.6(O); Pulse Ox 100% ; ke1 14:16 Body Mass Index 37.73 (96.62 kg, 160.02 cm) jd3 ED Course: 13:56 Patient arrived in ED. as 14:01 Coy Card PA is PHCP. [facility] 14:01 Colton Julio MD is Attending Physician. [facility] 14:12 See Travis, THADDEUS is Primary Nurse. ke1 14:15 Triage completed. jd3 14:17 Arm band placed on. jd3 14:28 COVID-19/FLU A+B (Document "Date of Onset" if Symptomatic) Sent. ke1 14:35 Bed in low position. Call light in reach. ke1 16:17 Droplet isolation initiated. ke1 16:53 No provider procedures requiring assistance completed. Patient did not have IV access ke1 during this emergency room visit. Administered Medications: No medications were administered Outcome: 16:23 Discharge ordered by MD. parkinson 16:53 Discharged to home ambulatory. ke1 16:53 Condition: stable 16:53 Discharge instructions given to patient. 16:55 Patient left the ED. ke1 Signatures: Coy Card PA PA jmm Martinez, Amelia as Davies, Jonathon, RN RN See Daniel RN RN ke1 Corrections: (The following items were deleted from the chart) 14:16 14:15 PSHx: None; vivien puga 14:35 14:30 GI: Abdomen is 20 weeks ke1 ke1 16:54 15:30 Reassessment: Patient states symptoms have improved. ke1 ke1
--- NOTE | 2021-04-30 16:24 | EDPHYS ---
Physician Documentation [facility] Name: Allison Boswell Age: 30 yrs Sex: Female : 1990 Arrival Date: 04/30/2021 Time: 13:56 Bed 9 Private MD: ED Physician Colton Julio HPI: 04/30 16:19 This 30 yrs old Female presents to ER via Ambulatory with complaints of r/o covid, 20 jmm wks preg. 16:19 The patient or guardian reports cough. Onset: The symptoms/episode began/occurred jmm gradually, 3 day(s) ago. Modifying factors: The symptoms are alleviated by nothing. the symptoms are aggravated by nothing. 16:22 Associated signs and symptoms: Pertinent positives: fever, sore throat, Pertinent jmm negatives: diarrhea. The patient has experienced similar episodes in the past. 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 Flu vaccine is up to date. - Social history:: Smoking status: Patient denies any tobacco usage or history of. ROS: 16:22 Constitutional: Positive for body aches, chills, fatigue, fever. jmm 16:22 ENT: Positive for sore throat. 16:22 Respiratory: Positive for cough. 16:22 All other systems are negative. Exam: 16:19 Constitutional: This is a well developed, well nourished patient who is awake, alert, jmm and in no acute distress. Head/Face: atraumatic. Eyes: EOMI, no conjunctival erythema appreciated 16:19 Neck: Trachea midline, Supple Chest/axilla: Normal chest wall appearance and motion. Cardiovascular: Regular rate and rhythm. No edema appreciated Respiratory: Normal respirations, no respiratory distress appreciated Abdomen/GI: Non distended, soft Back: Normal ROM Skin: General appearance color normal MS/ Extremity: Moves all extremities, no obvious deformities appreciated, no edema noted to the lower extremities Neuro: Awake and alert Psych: Behavior is normal, Mood is normal, Patient is cooperative and pleasant 16:19 ENT: Posterior pharynx: erythema, that is mild. Vital Signs: 14:16 BP 122 / 76; Pulse 110; Resp 18 S; Temp 98.5(TE); Pulse Ox 98% on R/A; Weight 96.62 kg jd3 (R); Height 5 ft. 3 in. (160.02 cm) (R); Pain 8/10; 16:53 BP 122 / 62; Pulse 98; Resp 18; Temp 98.6(O); Pulse Ox 100% ; ke1 14:16 Body Mass Index 37.73 (96.62 kg, 160.02 cm) jd3 MDM: 15:13 Patient medically screened. [facility] 16:22 Data reviewed: vital signs, nurses notes. Counseling: I had a detailed discussion with reshma the patient and/or guardian regarding: the historical points, exam findings, and any diagnostic results supporting the discharge/admit diagnosis, lab results, the need for outpatient follow up, to return to the emergency department if symptoms worsen or persist or if there are any questions or concerns that arise at home. 04/30 14:17 Order name: COVID-19/FLU A+B (Document "Date of Onset" if Symptomatic); Complete Time: [facility] 16:22 Administered Medications: No medications were administered Disposition: 17:11 Co-signature as Attending Physician, Colton Julio MD I agree with the assessment and rn plan of care. Attestation: The patient's history, exam findings, diagnostics, and a summary of any interventions or procedures was reviewed in detail with Coy BAEZA. Disposition Summary: 04/30/21 16:23 Discharge Ordered Location: Home [facility] Condition: Stable [facility] Diagnosis - Coronavirus infection, unspecified [facility] Followup: [facility] - With: Private Physician - When: 2 - 3 days - Reason: Recheck today's complaints, Continuance of care, Re-evaluation by your physician Discharge Instructions: - Discharge Summary Sheet [facility] - COVID-19 [facility] Forms: - Medication Reconciliation Form [facility] - Thank You Letter [facility] - Antibiotic Education [facility] - Prescription Opioid Use [facility] Prescriptions: - albuterol sulfate 90 mcg/actuation Inhalation HFA aerosol inhaler - inhale 1 puff by INHALATION route every 6 hours; 1 Pump; Refills: 0, Product jmm Selection Permitted Signatures: Dispatcher [employer] Coy Harris PA PA jmm Nieto, Roman, MD MD rn Davies, Jonathon, RN RN jd3 Corrections: (The following items were deleted from the chart) 14:16 14:15 PSHx: None; jd3 jd3
[2021-04-30 17:08] VITALS: BP 122/62; TEMP 98.6; O2SAT 100
== END 2021-04-30 16:55 | disposition home or self-care (01) ==
LOC: EDSTATUS 13:55 → ER 13:55
DX: O98.512 Other viral diseases complicating pregnancy, second trimester (principal); U07.1 COVID-19; Z3A.20 20 weeks gestation of pregnancy; Z88.0 Allergy status to penicillin; Z88.2 Allergy status to sulfonamides
CPT/HCPCS: 0240U; 99284